=== PATIENT | female | born 1990 | race African-American/Black ===

== ENCOUNTER 2021-02-19 16:45 | Emergency (ER) | payer SELFPAY ==
[2021-02-19] MEDS ORDERED: Albuterol/Ipratropium 3.0-0.5 MG/3 ML Neb Soln NEB ONE (17:58)
--- NOTE | 2021-02-19 18:07 | EDM.PDOC ---
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 Tsai is a very pleasant 30-year-old woman who now presents the ED stating that she has a history of presumptive diagnosis since childhood, ordinarily on albuterol by MDI, and fluticasone/salmeterol. She states that she uses both of these medications on a variable basis depending on how she feels; sometimes up to 4 times a day for each, sometimes none. She states that she ran out of the fluticasone/salmeterol 2 days ago, then developed dyspnea with wheezing and a nonproductive cough yesterday. No recent fever. She states that she last took some albuterol this morning. The patient's explained that their family are refugees from [place], initially living in [place], but moving to this area 4 days ago. They have not yet established a PCP. The patient is also , , with her LMP some time in December. She does not have an LPN HOME HEALTH. Here in the ED, the patient's initial BP is found to be modestly elevated at 155/85, otherwise, she is hemodynamically stable, afebrile, saturating 96% on room air. Her BP decreased to 134/84 without treatment. Prior to yesterday, the patient denies having a recent fever, chills, sore throat, ear pain, nasal or sinus congestion, cough, dyspnea, chest pain, palpitations, nausea, vomiting, constipation, diarrhea, abdominal pain, urinary symptoms, recent weight gain or weight loss, recent bloody bowel movements or black bowel movements, recent joint aches, headaches, or rashes. The patient does not have a PCP or LPN HOME HEALTH. Headache Pain Score (Numeric/FACES): 4 - Related Data Home Meds: Home Meds Fluticasone Propion/Salmeterol [Fluticasone-Salmeterol 250-50] 1 inhalation IH BID #1 blst.w.dev 02/19/21 [Rx] Past Medical History Respiratory History: Reports: Asthma (suspected, not PFT-tested) : 3 Para: 2 - Past Surgical History Female Surgical History: Reports: Section (x 1) Social & Family History - Tobacco Use Tobacco Use Status *Q: Never Tobacco User - Alcohol Use Alcohol Use History: No - Recreational Drug Use Recreational Drug Use: No - Living Situation & Occupation Living situation: Reports: , with Spouse, with Family (2 kids) Occupation: Unemployed ED ROS GENERAL - Review of Systems Review Of Systems: Comprehensive ROS is negative, except as noted in HPI. ED EXAM, GENERAL - Physical Exam Exam: See Below Exam Limited By: No Limitations General Appearance: Alert, WD/WN, No Apparent Distress Eye Exam: Bilateral Eye: EOMI, Normal Inspection Ears: Normal External Exam, Hearing Grossly Normal Nose: Normal Inspection Throat/Mouth: Normal Inspection, Normal Lips, Normal Voice, No Airway Compromise Head: Atraumatic, Normocephalic Neck: Normal Inspection, Full Range of Motion Respiratory/Chest: No Respiratory Distress, No Accessory Muscle Use, Decreased Breath Sounds (slight), Wheezing (throughout), Prolonged Expiration (slight). No: Crackles, Rhonchi, Stridor Cardiovascular: Normal Peripheral Pulses, Regular Rate, Rhythm, No Edema, No Gallop, No JVD, No Murmur, No Rub Peripheral Pulses: 3+: Radial (L), Radial (R) GI/Abdominal: Normal Bowel Sounds, Soft, Non-Tender, No Organomegaly, No Distention, No Abnormal Bruit, Other (Gravid uterus) Back Exam: Normal Inspection, Full Range of Motion, NT Extremities: Normal Inspection, Normal Range of Motion, No Pedal Edema, Normal Capillary Refill Neurological: Alert, Oriented, Normal Cognition, No Motor/Sensory Deficits Psychiatric: Normal Affect Skin Exam: Warm, Dry, Intact, Normal Color, No Rash Course - Vital Signs Last Recorded V/S: Last Vital Signs Temp 36.6 C 02/19/21 17:27 Pulse 88 02/19/21 19:27 Resp 16 02/19/21 19:27 BP 116/72 02/19/21 19:27 Pulse Ox 93 L 02/19/21 19:27 - Orders/Labs/Meds Orders: Active Orders 24 hr Category Date Time Status RT Aerosol Therapy [RC] ASDIRECTED Care 02/19/21 17:58 Active Meds: Medications Discontinued Medications Generic Name Dose Route Start Last Admin Trade Name Klarissa PRN Reason Stop Dose Admin Albuterol/Ipratropium 3 ml 02/19/21 17:58 02/19/21 18:05 Albuterol/Ipratropium 3.0-0.5 Mg/3 Ml Neb Soln NEB 02/19/21 17:59 3 ml ONETIME ONE Administration - Re-Assessments/Exams Free Text/Narrative Re-Assessment/Exam: 02/19/21 17:59 As above, the patient has a presumptive history of asthma, ordinarily on albuterol MDI and fluticasone/salmeterol, both on a variable basis depending on how she feels, sometimes up to 4 times a day, sometimes none. She does not own a peak flow meter or spacer chamber. She now presents the ED requesting a refill of her fluticasone/salmeterol, having run out 2 days ago, then developing dyspnea, wheezing, and a cough yesterday. On examination, the patient does have expiratory wheezing throughout, although she has overall good air movement, with a minimally increased expiratory phase, and she does not appear to be in respiratory distress. The patient also reports that she is approximately 10 weeks gestation, with her LMP some time in December. By examination, I suspect that she is further along than that. I have ordered a DuoNeb, along with a peak flow meter and spacer chamber to be given to the patient. The respiratory therapist will begin educating about the proper use of albuterol and fluticasone/salmeterol. 02/19/21 18:45 I reevaluated the patient. She states that she feels much better, and her lungs are much clearer to auscultation. She has been provided both a peak flow meter and a spacer chamber, with instruction for proper use per the respiratory therapist. I will discharge her home with a prescription for fluticasone/salmeterol 250/50, 1 inhalation BID, #1 unit, no refills, however, the patient does not know which pharmacy to send the prescription to; her left the ED to take their children home and will return shortly. I will refer her to the clinic, to establish with a PCP and an LPN HOME HEALTH. 02/19/21 19:34 A prescription for fluticasone/salmeterol has been sent to the [facility]. Departure - Departure Time of Disposition: 19:32 Disposition: Home, Self-Care 01 Condition: Good Clinical Impression: Asthma exacerbation, Medication refill, - Discharge Information *PRESCRIPTION DRUG MONITORING PROGRAM REVIEWED*: Not Applicable *COPY OF PRESCRIPTION DRUG MONITORING REPORT IN PATIENT KVNG: Not Applicable Prescriptions: Fluticasone Propion/Salmeterol [Fluticasone-Salmeterol 250-50] 1 inhalation IH BID #1 blst.w.dev Referrals: PCP,None [Primary Care Provider] - Joslyn Powell NP [Nurse Practitioner] - Jacob Horvath MD [Physician] - Forms: ED Department Discharge Additional Instructions: You were seen in the emergency room for an exacerbation of asthma, as well as for a refill of your fluticasone/salmeterol. You were treated with a DuoNeb in the ER, with improvement of your symptoms. You were provided both a peak flow meter and a spacer chamber, along with instruction on how to use them, by the respiratory therapist during your ER visit. We recommend that you check your peak flow 2 or 3 times a week, that you learn how to use your peak flow meter and get to know your normal peak flow numbers. We recommend that you use your spacer chamber anytime you use a metered-dose inhaler. A prescription for a fluticasone/salmeterol blister pack has been sent to the [facility], located at [address] [place] [address]. Take 1 inhalation of fluticasone/albuterol twice a day, as prescribed. We recommend that you follow-up with Joslyn Powell NP, or one of the other providers in the clinic, to establish a PCP. We recommend that you follow-up with Dr. Jacob Horvath, to establish an LPN HOME HEALTH. If any other problems, please do not hesitate to return to the ER. Sepsis Event Note (ED) - Evaluation Sepsis Screening Result: No Definite Risk - Focused Exam Vital Signs: Vital Signs Temp Pulse Resp BP Pulse Ox Pulse Ox 02/19/21 19:27 88 16 116/72 93 L 02/19/21 17:58 93 L 02/19/21 17:27 36.6 C 93 18 155/85 H 96 - My Orders Last 24 Hours: My Active Orders 02/19/21 17:58 RT Aerosol Therapy [RC] ASDIRECTED - Assessment/Plan Last 24 Hours: My Active Orders 02/19/21 17:58 RT Aerosol Therapy [RC] ASDIRECTED
== END 2021-02-19 19:55 | disposition home or self-care (01) ==
LOC: JD.ED 16:45
DX: O99.511 Diseases of the respiratory system complicating pregnancy, first trimester (principal); J45.901 Unspecified asthma with (acute) exacerbation; Z76.0 Encounter for issue of repeat prescription; Z79.899 Other long term (current) drug therapy; Z3A.10 10 weeks gestation of pregnancy
CPT/HCPCS: 94640; 99283; 99283-25; J7620-GY

== ENCOUNTER 2021-05-11 10:46 | Emergency (ER) | payer MEDICAID ==
[2021-05-11] MEDS ORDERED: Albuterol/Ipratropium 3.0-0.5 MG/3 ML Neb Soln NEB ONE ×3 (11:12→16:13)
[2021-05-11] MEDS ORDERED: methylPREDNISolone Sodium Succinate 125 MG/2 ML SDV IVPUSH ONE (11:17)
--- NOTE | 2021-05-11 11:27 | EDM.PDOC ---
ED HPI GENERAL MEDICAL PROBLEM - General Chief Complaint: Asthma Stated Complaint: SOB Time Seen by Provider: 05/11/21 11:04 Source of Information: Reports: Patient, RN Notes Reviewed History Limitations: Reports: No Limitations - History of Present Illness INITIAL COMMENTS - FREE TEXT/NARRATIVE: Patient is a 30-year-old female presenting to the emergency department with complaints of asthma exacerbation. She reports that over the last 2 weeks, her asthma symptoms have been worsening significantly. She has been using her albuterol and Advair inhalers with little relief. She complains of chest tightness and wheezing. She is had no fever, chills, or cough. Denies any nausea vomiting or diarrhea. - Related Data Allergies Allergy/AdvReac Type Severity Reaction Status Date / Time No Known Allergies Allergy Verified 02/19/21 19:37 Home Meds: Home Meds Fluticasone Propion/Salmeterol [Fluticasone-Salmeterol 250-50] 1 inhalation IH BID #1 blst.w.dev 02/19/21 [Rx] Albuterol/Ipratropium [DuoNeb 3.0-0.5 MG/3 ML] 3 ml .XX Q4H PRN #25 ml 05/11/21 [Rx] predniSONE [Prednisone] 20 mg PO ASDIRECTED #15 tablet 05/11/21 [Rx] Past Medical History Respiratory History: Reports: Asthma - Past Surgical History Female Surgical History: Reports: Section Social & Family History - Caffeine Use Caffeine Use: Reports: None - Living Situation & Occupation Living situation: Reports: , with Spouse, with Family (2 kids) Occupation: Unemployed ED ROS GENERAL - Review of Systems Review Of Systems: See Below Constitutional: Reports: No Symptoms. Denies: Fever, Chills HEENT: Reports: No Symptoms Respiratory: Reports: Shortness of Breath, Wheezing, Pleuritic Chest Pain, Cough Cardiovascular: Reports: No Symptoms Endocrine: Reports: No Symptoms GI/Abdominal: Reports: No Symptoms : Reports: No Symptoms Musculoskeletal: Reports: No Symptoms Skin: Reports: No Symptoms Neurological: Reports: No Symptoms Psychiatric: Reports: No Symptoms Hematologic/Lymphatic: Reports: No Symptoms Immunologic: Reports: No Symptoms ED EXAM, GENERAL - Physical Exam Exam: See Below Exam Limited By: No Limitations General Appearance: Alert, Mild Distress Respiratory/Chest: No Respiratory Distress, No Accessory Muscle Use, Chest Non- Tender, Other (Diffuse, audible expiratory wheeze throughout. Decreased air exchange.) Cardiovascular: Normal Peripheral Pulses, Regular Rate, Rhythm, No Edema, No Gallop, No JVD, No Murmur, No Rub, Tachycardia (Female) Exam: Heart Tones (116) Neurological: Alert, Oriented, CN II-XII Intact, Normal Cognition, Normal Gait, Normal Reflexes, No Motor/Sensory Deficits Psychiatric: Normal Affect, Normal Mood Skin Exam: Warm, Dry, Intact, Normal Color, No Rash Course - Vital Signs Last Recorded V/S: Last Vital Signs Temp 97.9 F 05/11/21 11:02 Pulse 111 H 05/11/21 11:02 Resp 26 H 05/11/21 11:02 BP 147/92 H 05/11/21 11:02 Pulse Ox 92 L 05/11/21 13:47 - Orders/Labs/Meds Labs: Laboratory Tests 05/11/21 05/11/21 05/11/21 Range/Units 12:38 13:10 13:10 WBC 8.55 (3.98-10.04) K/mm3 RBC 4.77 (3.98-5.22) M/mm3 Hgb 12.8 (11.2-15.7) gm/dl Hct 41.1 (34.1-44.9) % MCV 86.2 (79.4-94.8) fl MCH 26.8 (25.6-32.2) pg MCHC 31.1 L (32.2-35.5) g/dl RDW Std Deviation 44.8 (36.4-46.3) fL Plt Count 266 (182-369) K/mm3 MPV 10.8 (9.4-12.3) fl Neut % (Auto) 64.9 (34.0-71.1) % Lymph % (Auto) 26.4 (19.3-51.7) % [place] % (Auto) 7.0 (4.7-12.5) % Eos % (Auto) 0.9 (0.7-5.8) Baso % (Auto) 0.2 (0.1-1.2) % Neut # (Auto) 5.54 (1.56-6.13) K/mm3 Lymph # (Auto) 2.26 (1.18-3.74) K/mm3 [place] # (Auto) 0.60 H (0.24-0.36) K/mm3 Eos # (Auto) 0.08 (0.04-0.36) K/mm3 Baso # (Auto) 0.02 (0.01-0.08) K/mm3 Sodium 135 L (136-145) mEq/L Potassium 4.2 (3.5-5.1) mEq/L Chloride 101 (98-107) mEq/L Carbon Dioxide 25 (21-32) mEq/L Anion Gap 13.2 (5-15) BUN 4 L (7-18) mg/dL Creatinine 0.5 L (0.55-1.02) mg/dL Est Cr Clr Drug Dosing TNP Estimated GFR (MDRD) > 60 (>60) mL/min BUN/Creatinine Ratio 8.0 L (14-18) Glucose 167 H (70-99) mg/dL Calcium 8.8 (8.5-10.1) mg/dL Magnesium 1.6 L (1.8-2.4) mg/dL Total Bilirubin 0.3 (0.2-1.0) mg/dL AST 16 (15-37) U/L ALT 17 (14-59) U/L Alkaline Phosphatase 94 (46-116) U/L Total Protein 8.0 (6.4-8.2) g/dl Albumin 2.8 L (3.4-5.0) g/dl Globulin 5.2 gm/dL Albumin/Globulin Ratio 0.5 L (1-2) SARS-CoV-2 RNA (JAZMIN) Negative (NEGATIVE) Meds: Medications Discontinued Medications Generic Name Dose Route Start Last Admin Trade Name Freq PRN Reason Stop Dose Admin Albuterol 2.5 mg 05/11/21 12:37 05/11/21 12:50 Albuterol 0.083% 2.5 Mg/3 Ml Neb Soln NEB 05/11/21 12:38 2.5 mg ONETIME ONE Administration Albuterol 2.5 mg 05/11/21 13:46 05/11/21 13:57 Albuterol 0.083% 2.5 Mg/3 Ml Neb Soln NEB 05/11/21 13:47 2.5 mg ONETIME ONE Administration Albuterol/Ipratropium 3 ml 05/11/21 11:12 05/11/21 11:31 Albuterol/Ipratropium 3.0-0.5 Mg/3 Ml Neb Soln NEB 05/11/21 11:13 3 ml ONETIME ONE Administration Albuterol/Ipratropium 3 ml 05/11/21 11:43 05/11/21 12:07 Albuterol/Ipratropium 3.0-0.5 Mg/3 Ml Neb Soln NEB 05/11/21 11:44 3 ml ONETIME ONE Administration Albuterol/Ipratropium 9 ml 05/11/21 16:13 Albuterol/Ipratropium 3.0-0.5 Mg/3 Ml Neb Soln NEB 05/11/21 16:14 ONETIME ONE Magnesium Sulfate 2 gm/ Premix 50 mls @ 100 mls/hr 05/11/21 12:36 05/11/21 13:15 IV 05/11/21 13:05 100 mls/hr ONETIME ONE Administration Methylprednisolone Sodium Succinate 125 mg 05/11/21 11:17 05/11/21 12:17 Methylprednisolone Sodium Succinate 125 Mg/2 Ml Sdv IVPUSH 05/11/21 11:18 125 mg ONETIME ONE Administration - Re-Assessments/Exams Free Text/Narrative Re-Assessment/Exam: Patient is a 30-year-old female presenting to the emergency department with complaints of 2-week history of worsening asthma symptoms. She is on albuterol and Advair and reports that this is providing no relief for her. Patient is 22 weeks . Denies any other symptoms such as fever or chills. On arrival to ER, oxygen saturations were 90% on room air. Triage nurse did place her on O2 by nasal cannula in her mouth and she is currently saturating 94%. She has audible wheezing. On exam, lung sounds are very tight and wheezy. I have ordered DuoNeb breathing treatment and Solu-Medrol 125 mg IV. 05/11/21 1145 Patient had slight improvement with the DuoNeb breathing treatment but continues to be wheezy. Of ordered a second DuoNeb to be given. 05/11/21 1240 Patient continues to have wheezing. I have ordered albuterol breathing treatment and magnesium sulfate 2 g IV. 05/11/21 13:45 Lung sounds have significantly improved, however there is still a faint expiratory wheeze. I will repeat albuterol breathing treatment. Nursing staff checked heart tones and they were found to be 116. Consulted with [facility], Dr. Hester. She stated that this is normal and did not recommend any intervention. 05/11/21 16:13 Patient is feeling much better. Lungs are clear with no audible wheezing. She has good air exchange. Oxygen saturations have been 90 to 93% on room air. She does not have a nebulizer machine at home. We will send her home with a nebulizer machine. I will also send 3 DuoNeb breathing treatments with her and send prescription for these. She will be started on prednisone tapering tomorrow. Reports she has an appointment to establish care with a primary care provider on May 16. Recommend that she keep this. Discussed return precautions. Discharge instructions as documented. Departure - Departure Time of Disposition: 16:15 Disposition: Home, Self-Care 01 Condition: Good Clinical Impression: Asthma exacerbation Qualifiers: Asthma severity: moderate Asthma persistence: persistent Qualified Code(s): J45.41 - Moderate persistent asthma with (acute) exacerbation - Discharge Information *PRESCRIPTION DRUG MONITORING PROGRAM REVIEWED*: No *COPY OF PRESCRIPTION DRUG MONITORING REPORT IN PATIENT KVNG: No Prescriptions: Albuterol/Ipratropium [DuoNeb 3.0-0.5 MG/3 ML] 3 ml .XX Q4H PRN #25 ml PRN Reason: Shortness Of Breath predniSONE [Prednisone] 20 mg PO ASDIRECTED #15 tablet Instructions: Asthma, Adult, [id number] Referrals: PCP,None [Primary Care Provider] - Forms: ED Department Discharge Additional Instructions: You were seen in the emergency department today for asthma exacerbation. Work- up included blood work, chest x-ray, and Covid test. Results of your work-up were found to be normal. While in the ER, you received IV steroids, nebulizer treatments, and magnesium through your IV. This did significantly improve your symptoms. You have been sent home with a nebulizer machine and 3 DuoNeb breathing treatments. You may use these every 4 hours as needed for shortness of breath or wheezing. Prescription has also been sent to your pharmacy for this. You been started on prednisone as well. This is a steroid. Begin taking this as prescribed tomorrow. Continue to use your Advair and albuterol inhalers as prescribed. Keep your appointment as scheduled on Wednesday with primary care provider. Discuss your worsening asthma symptoms. If you should experience any new or worsening symptoms of concern, please do not hesitate to return to the emergency department for reevaluation.
[2021-05-11] MEDS ORDERED: Magnesium Sulfate/Water 2 GM in Premix Bag 1 BAG IV ONE (12:36)
[2021-05-11] MEDS ORDERED: Albuterol 0.083% 2.5 MG/3 ML Neb Soln NEB ONE ×2 (12:37→13:46)
--- NOTE | 2021-05-11 15:37 | CR ---
Chest: Portable view of the chest was obtained. Comparison: No prior chest imaging is available. Heart size and mediastinum are within normal limits for portable technique. Lungs are clear with no acute parenchymal change. No acute osseous abnormality is appreciated. Impression: 1. Nothing acute is seen on portable chest x-ray. Diagnostic code #1
== END 2021-05-11 16:03 | disposition home or self-care (01) ==
LOC: JD.ED 10:46
DX: J45.41 Moderate persistent asthma with (acute) exacerbation (principal); Z20.822 Contact with and (suspected) exposure to COVID-19
CPT/HCPCS: 36415; 71045; 80053; 83735; 85025; 87635; 94640; 96365; 96375; 99285; J2930; J3475; J7620-GY; U0002

== ENCOUNTER 2021-07-22 15:11 | Inpatient (IN) | payer SELFPAY ==
[2021-07-22] MEDS ORDERED: Bupivacaine/fentaNYL/NS 100 ML Bag EPIDUR PRN (16:23)
[2021-07-22] MEDS ORDERED: fentaNYL 100 MCG/2 ML SDV EPIDUR PRN (16:23)
[2021-07-22] MEDS ORDERED: ePHEDrine 50 MG/ML SDV IVPUSH PRN (16:23)
[2021-07-22] MEDS ORDERED: diphenhydrAMINE 50 MG/ML SDV IVPUSH PRN (16:23)
[2021-07-22] MEDS ORDERED: Lidocaine 1% 50 ML MDV INJECT ONE (17:36)
[2021-07-22] MEDS ORDERED: Nalbuphine 10 MG/1 ML Vial IVPUSH PRN (17:36)
[2021-07-22] MEDS ORDERED: Sodium Chloride 0.9% 10 ML Syringe FLUSH PRN (17:36)
[2021-07-22] MEDS ORDERED: Ondansetron 4 MG/2 ML SDV IVPUSH PRN (17:36)
[2021-07-22] MEDS ORDERED: Lactated Ringers 1,000 ML IV SCH (17:45)
[2021-07-22] MEDS ORDERED: Oxytocin/Lactated Ringers 10 UNIT/1,000 ML BAG IV SCH ×2 (17:45)
--- NOTE | 2021-07-22 19:25 | PCM.LDHP ---
L&D History of Present Illness - General Date of Service: 07/22/21 Admit Problem/Dx: Patient Status Order with Admit Dx/Problem 07/22/21 18:09 Patient Status [ADT] Routine Admission Diagnosis/Problem Admission Diagnosis/Problem Gestational hypertension 07/22/21 19:17 Cristal 30-year-old 4 para 2-0-1-2 female presently at 37-0/7 weeks gestational age with an ISABELA of 08/12/2021 who is evaluated in labor and delivery with complaints of significant swelling of bilateral lower extremities. On evaluation she is noted to have blood pressure initially of 150/80 and multiple blood pressures in the high normal to mildly elevated category. Source of Information: Patient, Other ( record) History Limitations: Reports: Language Barrier (History was obtained through an conference interpreter on line and with the help of a friend by telephone.) - History of Present Illness Introduction:: Cristal 30-year-old 4 para 2-0-1-2 female presently at 37-0/7 weeks gestational age with an ISABELA of 08/12/2021 who is evaluated in labor and delivery with complaints of significant swelling of bilateral lower extremities. On evaluation she is noted to have blood pressure initially of 150/80 and multiple blood pressures in the high normal to mildly elevated category. She is monitored with reassuring heart tones and no significant contractions Blood pressures trended in the high normal to mildly elevated range and decision was made to proceed with induction of labor for what appears to be gestational hypertension. Laboratory testing revealed essentially normal liver function studies. CBC was unremarkable. Urine analysis showed 3+ protein and a protein:creatinine ratio which was extremely high. Deep tendon reflexes were found to be 1+/4 bilaterally in upper and lower extremities. Edema in bilateral lower extremities was felt to be 2+ with skin very tight and very painful with palpation of her lower extremities. RAMP BOSS history: 4 para 2-0-1-2. She denies any STIs. Also denies any hypertension with previous pregnancies. Patient's had 2 previous deliveries: 1. Male born 09/23/2009 at 41-0/7 weeks [place] 4.4 ouncesspontaneous vaginal delivery. 2. Male born 09/11/2017 at 38-0/7 weeks gestational ageprimary sectiondone in the [facility] in [facility]. Reason for the delivery by section is somewhat unclear. She has been told that she could have a vaginal delivery the next time around. course: Patient was initially seen for this on 04/04/2021 at 21-3/7 weeks gestational age. She was seen approximately 5 times during the . Her weight gain was from 183 to 192 pounds prior to today's visit. Fundal height growth appeared to be appropriate. On last evaluation on 06/20/2021 her blood pressure is 136/62. That was the last documented visit. Plan with her primary care director of corporate sales Dr. Owens was to proceed with a trial of labor after section for an attempt at vaginal after section. The risks, benefits, alternatives of care to a natural delivery including repeat section are discussed by myself in detail with the patient via an conference interpreter. She appears to understand and persist in her desire to proceed with a trial of labor after section for . Laboratory testing in shows blood to be a positive with a negative antibody screen. First labs showed a hemoglobin of 13.9 g/dL and platelets at 241,000. She is rubella positive/immune. Syphilis titer was negative for IgM and IgG. Hepatitis B surface antigen was negative. Hepatitis C evaluation was nonreactive. Chlamydia and gonorrhea were not detected. 1 hour glucose was 178 mg/dL. 3-hour glucose was 189. Patient was told that she did not have gestational diabetes. Do not see any sickle cell evaluation in the chart. Allergies: 1. Prednisone 2. Some type of medication that she received at the time of her which cause itching-question whether this was morphine or Duramorph.Patient unsure. Medications: 1. Albuterol inhaler as needed 2. Mometasone inhaler 2 puffs orally 1 time per day. 3. Albuterol ipratropium inhalation solution every 6 hours 4. vitamins Past medical history: 1. Miscarriage x1 2. Term delivered vaginallyfirst 3. Asthma on medications Past surgical history: 1. x1 Family history is reported as unremarkable. Social history: Patient is . She denies any drug, tobacco or alcohol use. She does not work outside the home. Review of systems: In general patient has the main complaint of severe bilateral lower extremity edema. Baby has been active. She is not had any contractions, loss of vaginal fluid or vaginal bleeding. She also reports she has not been seen by a physician for approximately 5 to 6 weeks. Skin: Negative Lungs: No infectious symptoms or shortness of breath Cardiovascular: No chest pain or exercise intolerance Breasts: No lumps, changes in size, pain, dimpling, discharge or axillary or supraclavicular concerns. GI: Negative : Baby is active, no contractions noted. No loss of vaginal fluid or vaginal bleeding noted. Musculoskeletal: Negative Neurological: Negative In general the patient is well-developed, well-nourished, pleasant female of stated age in no acute distress. There is a significant language barrier. History and interaction is obtained through the use of an online conference interpreter and then a friend who is communicated with by phone when the online conference interpreter connection failed. Skin is on the medial aspect of her right arm ventrally has scarring present no active lesions. Her bilateral lower extremities show significant edema in the 2+ range bilaterally. Her extremities are very tender and sensitive to even mild palpation. HEENT, neck and back within normal limits. Lungs are clear with good breath sounds in all lung holliday. Fair respiratory effort is made. Cardiovascular exam shows regular and rhythm without murmurs. Abdomen is gravid with fundal height of approximately 42 cm. Baby is in vertex presentation by Eduard evaluation and confirmed with bedside ultrasound.. Genital per digital exam shows cervix to be 3+ centimeters, 90% effaced, -2, mid position to anterior, soft, cephalic presentation confirmed.. Extremities show severe 2+ bilateral lower extremity edema and discomfort with palpation of her edematous bilateral lower extremities. Laboratory testing upon admission shows A CBC with a white blood count of 6.82. Globin is 11.3 with hematocrit 36.6 and platelets 197,000. Comprehensive metabolic profile shows a CO2 of 23, a sodium 139 and a potassium of 4.4. Her chloride is 107. ALT is 13, AST is 21. Creatinine 0.5. Urinalysis shows 3+ protein. Protein creatinine ratio is 5936.7. Covid evaluation is negative. The group B strep screen is obtained and pending. Urine drug screen was also performed and pending. - Related Data Allergies/Adverse Reactions: Allergies Allergy/AdvReac Type Severity Reaction Status Date / Time No Known Allergies Allergy Verified 02/19/21 19:37 Home Medications: Home Meds Fluticasone Propion/Salmeterol [Fluticasone-Salmeterol 250-50] 1 inhalation IH BID #1 blst.w.dev 02/19/21 [Rx] Albuterol/Ipratropium [DuoNeb 3.0-0.5 MG/3 ML] 3 ml .XX Q4H PRN #25 ml 05/11/21 [Rx] predniSONE [Prednisone] 20 mg PO ASDIRECTED #15 tablet 05/11/21 [Rx] Past Medical History - Past Health History Medical/Surgical History: Denies Medical/Surgical History Respiratory History: Reports: Asthma RAMP BOSS History: Reports: Other OB/BYN History: - Past Surgical History Female Surgical History: Reports: Section Social & Family History - Family History Family Medical History: No Pertinent Family History - Caffeine Use Caffeine Use: Reports: None - Living Situation & Occupation Living situation: Reports: , with Spouse, with Family (2 kids) Occupation: Unemployed H&P Review of Systems - Review of Systems: Review Of Systems: See Below L&D Exam - Exam Exam: See Below - Vital Signs Weight: 96.162 kg - Patient Data Lab Results Last 24 hrs: Laboratory Results - last 24 hr 07/22/21 07/22/21 07/22/21 Range/Units 15:45 15:45 16:10 WBC 6.82 (3.98-10.04) K/mm3 RBC 4.58 (3.98-5.22) M/mm3 Hgb 11.3 D (11.2-15.7) gm/dl Hct 36.6 (34.1-44.9) % MCV 79.9 D (79.4-94.8) fl MCH 24.7 L (25.6-32.2) pg MCHC 30.9 L (32.2-35.5) g/dl RDW Std Deviation 47.8 H (36.4-46.3) fL Plt Count 197 (182-369) K/mm3 MPV 12.9 H (9.4-12.3) fl Neut % (Auto) 53.5 (34.0-71.1) % Lymph % (Auto) 34.9 (19.3-51.7) % [place] % (Auto) 9.5 (4.7-12.5) % Eos % (Auto) 1.5 (0.7-5.8) Baso % (Auto) 0.3 (0.1-1.2) % Neut # (Auto) 3.65 (1.56-6.13) K/mm3 Lymph # (Auto) 2.38 (1.18-3.74) K/mm3 [place] # (Auto) 0.65 H (0.24-0.36) K/mm3 Eos # (Auto) 0.10 (0.04-0.36) K/mm3 Baso # (Auto) 0.02 (0.01-0.08) K/mm3 Manual Slide Review Abnormal smear PT (9.7-12.0) SECONDS INR APTT (21.7-31.4) SECONDS Fibrinogen (187-446) mg/dL Fibrin Degrad Products (<5) ug/mL Sodium (136-145) mEq/L Potassium (3.5-5.1) mEq/L Chloride (98-107) mEq/L Carbon Dioxide (21-32) mEq/L Anion Gap (5-15) BUN (7-18) mg/dL Creatinine (0.55-1.02) mg/dL Est Cr Clr Drug Dosing Estimated GFR (MDRD) (>60) mL/min BUN/Creatinine Ratio (14-18) Glucose (70-99) mg/dL Calcium (8.5-10.1) mg/dL Total Bilirubin (0.2-1.0) mg/dL AST (15-37) U/L ALT (14-59) U/L Alkaline Phosphatase (46-116) U/L Total Protein (6.4-8.2) g/dl Albumin (3.4-5.0) g/dl Globulin gm/dL Albumin/Globulin Ratio (1-2) Urine Color Yellow (Yellow) Urine Appearance Clear (Clear) Urine pH 7.0 (5.0-8.0) Ur Specific [place] 1.020 (1.005-1.030) Urine Protein 3+ H (Negative) Urine Glucose (UA) Negative (Negative) Urine Ketones Negative (Negative) Urine Occult Blood Trace-lysed H (Negative) Urine Nitrite Negative (Negative) Urine Bilirubin Negative (Negative) Urine Urobilinogen 0.2 (0.2-1.0) Ur Leukocyte Esterase Negative (Negative) Urine RBC 0-5 (0-5) /hpf Urine WBC 0-5 (0-5) /hpf Ur Squamous Epith Cells 5-10 H (0-5) /hpf Urine Bacteria Few (FEW) /hpf Urine Mucus Few (FEW) /hpf Ur Random Creatinine 67.9 (30.0-125.0) mg/dL U Random Total Protein 403.1 H (0.0-11.8) mg/dL Protein/Creatinin Ratio 5936.7 H (0-149) mg/g SARS-CoV-2 RNA (JAZMIN) (NEGATIVE) 07/22/21 07/22/21 07/22/21 Range/Units 16:10 16:10 16:10 WBC (3.98-10.04) K/mm3 RBC (3.98-5.22) M/mm3 Hgb (11.2-15.7) gm/dl Hct (34.1-44.9) % MCV (79.4-94.8) fl MCH (25.6-32.2) pg MCHC (32.2-35.5) g/dl RDW Std Deviation (36.4-46.3) fL Plt Count (182-369) K/mm3 MPV (9.4-12.3) fl Neut % (Auto) (34.0-71.1) % Lymph % (Auto) (19.3-51.7) % [place] % (Auto) (4.7-12.5) % Eos % (Auto) (0.7-5.8) Baso % (Auto) (0.1-1.2) % Neut # (Auto) (1.56-6.13) K/mm3 Lymph # (Auto) (1.18-3.74) K/mm3 [place] # (Auto) (0.24-0.36) K/mm3 Eos # (Auto) (0.04-0.36) K/mm3 Baso # (Auto) (0.01-0.08) K/mm3 Manual Slide Review PT 9.1 L (9.7-12.0) SECONDS INR < 0.93 APTT 23.3 (21.7-31.4) SECONDS Fibrinogen 389 (187-446) mg/dL Fibrin Degrad Products < 5 ug/ml (<5) ug/mL Sodium 139 (136-145) mEq/L Potassium 4.4 (3.5-5.1) mEq/L Chloride 107 (98-107) mEq/L Carbon Dioxide 23 (21-32) mEq/L Anion Gap 13.4 (5-15) BUN 6 L (7-18) mg/dL Creatinine 0.5 L (0.55-1.02) mg/dL Est Cr Clr Drug Dosing TNP Estimated GFR (MDRD) > 60 (>60) mL/min BUN/Creatinine Ratio 12.0 L (14-18) Glucose 94 (70-99) mg/dL Calcium 8.6 (8.5-10.1) mg/dL Total Bilirubin 0.2 (0.2-1.0) mg/dL AST 21 (15-37) U/L ALT 13 L (14-59) U/L Alkaline Phosphatase 184 H (46-116) U/L Total Protein 6.0 L (6.4-8.2) g/dl Albumin 1.9 L (3.4-5.0) g/dl Globulin 4.1 gm/dL Albumin/Globulin Ratio 0.5 L (1-2) Urine Color (Yellow) Urine Appearance (Clear) Urine pH (5.0-8.0) Ur Specific [place] (1.005-1.030) Urine Protein (Negative) Urine Glucose (UA) (Negative) Urine Ketones (Negative) Urine Occult Blood (Negative) Urine Nitrite (Negative) Urine Bilirubin (Negative) Urine Urobilinogen (0.2-1.0) Ur Leukocyte Esterase (Negative) Urine RBC (0-5) /hpf Urine WBC (0-5) /hpf Ur Squamous Epith Cells (0-5) /hpf Urine Bacteria (FEW) /hpf Urine Mucus (FEW) /hpf Ur Random Creatinine (30.0-125.0) mg/dL U Random Total Protein (0.0-11.8) mg/dL Protein/Creatinin Ratio (0-149) mg/g SARS-CoV-2 RNA (JAZMIN) (NEGATIVE) 07/22/21 Range/Units 16:15 WBC (3.98-10.04) K/mm3 RBC (3.98-5.22) M/mm3 Hgb (11.2-15.7) gm/dl Hct (34.1-44.9) % MCV (79.4-94.8) fl MCH (25.6-32.2) pg MCHC (32.2-35.5) g/dl RDW Std Deviation (36.4-46.3) fL Plt Count (182-369) K/mm3 MPV (9.4-12.3) fl Neut % (Auto) (34.0-71.1) % Lymph % (Auto) (19.3-51.7) % [place] % (Auto) (4.7-12.5) % Eos % (Auto) (0.7-5.8) Baso % (Auto) (0.1-1.2) % Neut # (Auto) (1.56-6.13) K/mm3 Lymph # (Auto) (1.18-3.74) K/mm3 [place] # (Auto) (0.24-0.36) K/mm3 Eos # (Auto) (0.04-0.36) K/mm3 Baso # (Auto) (0.01-0.08) K/mm3 Manual Slide Review PT (9.7-12.0) SECONDS INR APTT (21.7-31.4) SECONDS Fibrinogen (187-446) mg/dL Fibrin Degrad Products (<5) ug/mL Sodium (136-145) mEq/L Potassium (3.5-5.1) mEq/L Chloride (98-107) mEq/L Carbon Dioxide (21-32) mEq/L Anion Gap (5-15) BUN (7-18) mg/dL Creatinine (0.55-1.02) mg/dL Est Cr Clr Drug Dosing Estimated GFR (MDRD) (>60) mL/min BUN/Creatinine Ratio (14-18) Glucose (70-99) mg/dL Calcium (8.5-10.1) mg/dL Total Bilirubin (0.2-1.0) mg/dL AST (15-37) U/L ALT (14-59) U/L Alkaline Phosphatase (46-116) U/L Total Protein (6.4-8.2) g/dl Albumin (3.4-5.0) g/dl Globulin gm/dL Albumin/Globulin Ratio (1-2) Urine Color (Yellow) Urine Appearance (Clear) Urine pH (5.0-8.0) Ur Specific [place] (1.005-1.030) Urine Protein (Negative) Urine Glucose (UA) (Negative) Urine Ketones (Negative) Urine Occult Blood (Negative) Urine Nitrite (Negative) Urine Bilirubin (Negative) Urine Urobilinogen (0.2-1.0) Ur Leukocyte Esterase (Negative) Urine RBC (0-5) /hpf Urine WBC (0-5) /hpf Ur Squamous Epith Cells (0-5) /hpf Urine Bacteria (FEW) /hpf Urine Mucus (FEW) /hpf Ur Random Creatinine (30.0-125.0) mg/dL U Random Total Protein (0.0-11.8) mg/dL Protein/Creatinin Ratio (0-149) mg/g SARS-CoV-2 RNA (JAZMIN) Negative (NEGATIVE) Result Diagrams: 07/22/21 16:10 07/22/21 16:10 - Problem List (1) 37 weeks gestation of SNOMED Code(s): 37633358 ICD Code: Z3A.37 - 37 WEEKS GESTATION OF Status: Acute Current Visit: Yes (2) Gestational hypertension SNOMED Code(s): 22601214 ICD Code: O13.9 - GESTATIONAL HTN W/O SIGNIFICANT PROTEINURIA, UNSP TRIMESTER Status: Acute Current Visit: Yes (3) Bilateral lower extremity edema SNOMED Code(s): 444065934, 76339604, 338540698 ICD Code: R60.0 - LOCALIZED EDEMA Status: Acute Current Visit: Yes (4) Previous delivery affecting SNOMED Code(s): 691255948, 101735279 ICD Code: O34.219 - MATERNAL CARE FOR UNSP TYPE SCAR FROM PREVIOUS DEL Status: Acute Current Visit: Yes (5) Language barrier SNOMED Code(s): 379105247, 462687421 ICD Code: Z78.9 - OTHER SPECIFIED HEALTH STATUS Status: Acute Current Visit: Yes (6) Asthma SNOMED Code(s): 544641789 ICD Code: J45.909 - UNSPECIFIED ASTHMA, UNCOMPLICATED Status: Acute Current Visit: Yes Problem List Initiated/Reviewed/Updated: Yes Orders Last 24hrs: Active Orders 24 hr Category Date Time Status Patient Status [ADT] Routine ADT 07/22/21 18:09 Active Activity as Tolerated [RC] PFP Care 07/22/21 17:39 Active Communication Order [RC] ASDIRECTED Care 07/22/21 16:23 Active Communication Order [RC] ASDIRECTED Care 07/22/21 17:39 Active Cooling Warming Measures [RC] ASDIRECTED Care 07/22/21 16:23 Active Heart Tones [RC] ASDIRECTED Care 07/22/21 17:41 Active Non Stress Test [RC] PER UNIT ROUTINE Care 07/22/21 15:26 Active Notify Provider [RC] ASDIRECTED Care 07/22/21 16:23 Active Notify Provider [RC] ASDIRECTED Care 07/22/21 16:24 Active Notify Provider [RC] PFP Care 07/22/21 17:39 Active Notify Provider [RC] PRN Care 07/22/21 17:39 Active Oxygen Therapy [RC] ASDIRECTED Care 07/22/21 16:23 Active Peripheral IV Care [RC] . DIRECTED Care 07/22/21 17:41 Active Pulse Oximetry [RC] ASDIRECTED Care 07/22/21 16:23 Active Up ad Annabella [RC] ASDIRECTED Care 07/22/21 15:27 Active Urinary Catheter Assessment [RC] ASDIRECTED Care 07/22/21 17:36 Active Vital Signs [RC] PER UNIT ROUTINE Care 07/22/21 15:26 Active Regular Diet [DIET] Diet 07/22/21 Dinner Active GROUP B STREP BY PCR [MOLEC] Routine Lab 07/22/21 16:15 Received RAPID PLASMA REAGIN,RPR [CHEM] Routine Lab 07/22/21 16:10 Received Bupivacaine/fentaNYL/NS [fentaNYL/Bupivacaine/NS 2 MCG- Med 07/22/21 16:23 Active 0.125% 100 ML] 100 ml EPIDUR ASDIRECTED PRN Lactated Ringers [Ringers, Lactated] 1,000 ml Med 07/22/21 17:45 Active IV ASDIRECTED Nalbuphine [Nubain] Med 07/22/21 17:36 Active 10 mg IVPUSH Q2H PRN Ondansetron [Zofran] Med 07/22/21 17:36 Active 4 mg IVPUSH Q4H PRN Oxytocin/Lactated Ringers [Pitocin in LR 10 Units/1,000 Med 07/22/21 17:45 Active ML] 10 unit in 1,000 ml IV .CONTINUOUS Oxytocin/Lactated Ringers [Pitocin in LR 10 Units/1,000 Med 07/22/21 17:45 Active ML] 10 unit in 1,000 ml IV TITRATE Sodium Chloride 0.9% [Saline Flush] Med 07/22/21 17:36 Active 10 ml FLUSH ASDIRECTED PRN diphenhydrAMINE [Benadryl] Med 07/22/21 16:23 Active 25 mg IVPUSH Q6H PRN ePHEDrine [ePHEDrine sulfate] Med 07/22/21 16:23 Active 5 mg IVPUSH ASDIRECTED PRN fentaNYL [Sublimaze] Med 07/22/21 16:23 Active 100 mcg EPIDUR Q3H PRN Electronic Heart Tones Ext w TOCO [WOMSER] Oth 07/22/21 17:39 Ordered Routine Electronic Heart Tones Internal [WOMSER] Per Unit Oth 07/22/21 17:39 Ordered Routine Peripheral IV Insertion Adult [OM.PC] Routine Oth 07/22/21 17:39 Ordered Resuscitation Status Routine Resus Stat 07/22/21 15:26 Ordered Medication Orders Diphenhydramine HCl (Diphenhydramine 50 Mg/Ml Sdv) 25 mg IVPUSH Q6H PRN PRN Reason: pruritis Ephedrine Sulfate (Ephedrine 50 Mg/Ml Sdv) 5 mg IVPUSH ASDIRECTED PRN PRN Reason: Hypotension Fentanyl (Fentanyl 100 Mcg/2 Ml Sdv) 100 mcg EPIDUR Q3H PRN PRN Reason: Pain Fentanyl/Bupivacaine HCl (Bupivacaine/Fentanyl/Ns 100 Ml Bag) 100 ml EPIDUR ASDIRECTED PRN PRN Reason: Pain Lactated Ringer's (Ringers, Lactated) 1,000 mls @ 100 mls/hr IV ASDIRECTED VINCENT Last Admin: 07/22/21 18:40 Dose: 100 mls/hr Documented by: DVORMAR Oxytocin/Lactated Ringer's (Pitocin In Lr 10 Units/1,000 Ml) 10 unit in 1,000 mls @ 12 mls/hr IV TITRATE VINCENT; Protocol Last Admin: 07/22/21 18:40 Dose: 2 munits/min, 12 mls/hr Documented by: DVORMAR Oxytocin/Lactated Ringer's (Pitocin In Lr 10 Units/1,000 Ml) 10 unit in 1,000 mls @ 500 mls/hr IV .CONTINUOUS VINCENT Nalbuphine HCl (Nalbuphine 10 Mg/1 Ml Vial) 10 mg IVPUSH Q2H PRN PRN Reason: Pain Ondansetron HCl (Ondansetron 4 Mg/2 Ml Sdv) 4 mg IVPUSH Q4H PRN PRN Reason: Nausea/Vomiting Sodium Chloride (Sodium Chloride 0.9% 10 Ml Syringe) 10 ml FLUSH ASDIRECTED PRN PRN Reason: Keep Vein Open Assessment/Plan Comment:: 1. Cristal 30-year-old 4 para 2-0-1-2 female presently at 37-0/7 weeks gestational age with an ISABELA of 08/12/2021 who is evaluated in labor and delivery with complaints of significant swelling of bilateral lower extremities. On evaluation she is noted to have blood pressure initially of 150/80 and multiple blood pressures in the high normal to mildly elevated category (150/80, 154/81). 2. Reassuring heart tones 3. Risk factors for include bilateral lower extremity edema, elevated blood pressures, history of previous section, language barrier, asthma on medications. 4. Patient not interested in epidural at this time but knows that if it is available if she desires. 5. Uncertain as to whether her through glucose tolerance test was abnormal or not. Only one value is given with a 3-hour glucose of 189testing followed an abnormal 1 hour GTT with a level 178mg/dL. 6. Patient desires a trial of labor after section for vaginal after section. The attempt at , its risks, benefits, terms of care including a repeat section discussed in detail with patient. She seems to understand and as best as can be ascertained she continues to wish to attempt a via trial of labor after section. Consent for both attempt and for repeat section will be signed as patient has agreed to both of them. 6. Blood A positive. She is rubella immune. Uncertain 3-hour GTT results is not available in the patient's chart and she has no recollection of them. 7. Fundal height and clinical estimation of size consistent with a large baby. 8. Unknown group B strep status Plan: 1. Continue close monitoring of blood pressures. Antihypertensives as indicated by blood pressure elevation. 2. Labor analgesia per patient desire 3. Pitocin induction of labor to be followed by AROM when possible 4. We will closely monitor progression of labor. 5. Empiric group B strep prophylaxis with ampicillin per protocol. 6. Near continuous electronic heart tone monitoring 7. Anesthesia and surgery to be made aware of patient's presence in labor and delivery.
[2021-07-22] MEDS ORDERED: Sodium Chloride 0.9% 100 ML ONE (19:51)
[2021-07-22] MEDS ORDERED: Ampicillin 2 GM AdvVial IV ONE (19:51)
[2021-07-22] MEDS ORDERED: Ampicillin 2 GM in Sodium Chloride 0.9% 100 ML IV ONE (19:52)
[2021-07-22] MEDS ORDERED: Ampicillin 2 GM in Sodium Chloride 0.9% 100 ML IV SCH (20:00)
[2021-07-22] MEDS ORDERED: Albuterol/Ipratropium 3.0-0.5 MG/3 ML Neb Soln NEB ONE (20:53)
[2021-07-22] MEDS ORDERED: Labetalol 100 MG/20 ML MDV IVPUSH ONE (21:00)
[2021-07-22] MEDS ORDERED: Magnesium Sulfate/Water 4 GM in Premix Bag 1 BAG IV ONE (21:01)
[2021-07-22] MEDS ORDERED: Magnesium Sulfate/Water 2 GM in Premix Bag 1 BAG IV ONE (21:01)
[2021-07-22] MEDS ORDERED: Labetalol 100 MG/20 ML MDV ONE (21:02)
[2021-07-22] MEDS ORDERED: Calcium Gluconate 10% 1 GM/10 ML SDV IV PRN (21:04)
[2021-07-22] MEDS ORDERED: Magnesium Sulfate/Water 40 GM/1,000 ML BAG ONE (21:07)
[2021-07-22] MEDS ORDERED: Magnesium Sulfate/Water 50 ML ONE (21:07)
[2021-07-22] MEDS ORDERED: Magnesium Sulfate/Water 40 GM/1,000 ML BAG IV SCH (21:15)
[2021-07-22] MEDS ORDERED: Albuterol 6.7 GM Inhaler INH PRN (23:13)
--- NOTE | 2021-07-22 23:22 | PCM.SN.2 ---
- Free Text/Narrative Note: Delivery note: Stage I: Cristal 30-year-old 4 para 2-0-1-2 female presently at 37-0/7 weeks gestational age with an ISABELA of 08/12/2021 who is evaluated in labor and delivery with complaints of significant swelling of bilateral lower extremities. Upon admission patient was noted to have borderline elevated blood pressures that appeared very labile ranging from 136/63 to170/74. Generally they were in the low 150s systolic range and the 70s to 80s diastolic range. Decision was made to monitor this. Patient appeared to progress in a very active labor pattern after AROM resulted in clear amniotic fluid. The patient progressed very rapidly from 4 cm to complete within the course of less than 30 minutes and was very pushy with this. Pain was severe. heart tones remained reassuring throughout the course of labor. Patient did receive 1 dose of Nubain during the course of her labor. Stage II: Cristal delivered a viable, brown, female infant with Apgars of 8 and 9, weight of 3440 g (7 pounds 9 ounces), a length of 20.5 inches in a direct occiput anterior position. After the head was delivered a nuchal cord was noted. This was reduced over the baby's head. She had a small second-degree laceration which was repaired with Monocryl 3-0 in a routine fashion. No anesthesia was used for this and patient tolerated this reasonably well. After delivery Pitocin was increased to 500 cc/h to facilitate increase uterine tone and decrease likelihood of bleeding. He was placed on mom's abdomen. Because the baby has somewhat decreased tone the cord was clamped x2 cut and she was taken to the warmer for potential resuscitation which was determined not to be needed. The baby responded well and became vigorous over a short period of time. The cord blood was obtained. Umbilical cord had 3 vessels present. Stage III: Placenta delivered at 2249 hrs. in a Plasecnia presentation. It ap peared intact and complete and was discarded per patient desire. Estimated blood loss was approximately 300 cc. Condition: Good. Patient plans to both bottle and breast-feeding.
[2021-07-23] MEDS ORDERED: Ampicillin 1 GM in Sodium Chloride 0.9% 100 ML IV SCH ×2
[2021-07-23] MEDS: Magnesium Sulfate/Water 40 GM/1,000 ML BAG IV SCH ×2 (00:06→20:28)
[2021-07-23] MEDS: Labetalol 100 MG Tab PO SCH ×4 (00:16→21:29)
[2021-07-23] MEDS ORDERED: Benzocaine/Menthol 20%-0.5% Spray 78 GM Cannister TOP PRN (00:35)
[2021-07-23] MEDS ORDERED: Witch Hazel Medicated Pads 40/Jar TOP PRN (00:35)
[2021-07-23] MEDS: Ibuprofen 600 MG Tab PO PRN ×3 (04:38→20:26)
[2021-07-23] MEDS: Lactated Ringers 1,000 ML IV SCH ×2 (04:46→13:14)
[2021-07-23] MEDS: Mometasone Furoate HFA 200 mcg/Puff 13 GM Inhaler INH SCH (09:25)
[2021-07-23] MEDS: Albuterol 6.7 GM Inhaler INH SCH ×2 (09:25→20:13)
[2021-07-23] MEDS: Albuterol/Ipratropium 3.0-0.5 MG/3 ML Neb Soln NEB SCH ×4 (09:25→20:12)
[2021-07-23] MEDS: Acetaminophen 325 MG Tab PO PRN (09:28)
[2021-07-23] MEDS ORDERED: Sodium Chloride 0.9% 10 ML Syringe FLUSH ONE (11:23)
[2021-07-23] MEDS ORDERED: Iopamidol 755 Mg/ML 100 ML Bottle IVPUSH ONE (11:23)
[2021-07-23] MEDS ORDERED: Sodium Chloride 0.9% 100 ML IV SCH (11:30)
--- NOTE | 2021-07-23 12:30 | CT ---
CT chest Technique: Multiple axial sections through the chest were obtained. Intravenous contrast was utilized as a pulmonary angiogram protocol. Comparison: Prior chest x-ray of 05/11/21. Findings: Pulmonary arteries are well opacified. No filling defects are seen to indicate pulmonary embolism. Thoracic aorta shows no aneurysm. Mediastinum shows no adenopathy. Small lymph nodes are seen within both axillary regions which are likely incidental. Visualized upper abdominal structures show nothing acute. Heart size is mildly enlarged which is of uncertain etiology. No pericardial effusion is seen. Lung window settings were reviewed. No definite acute pulmonary change is seen. Bone window settings were reviewed which show no acute osseous finding. Impression: 1. Heart is mildly enlarged which is of uncertain etiology. 2. No findings of pulmonary embolism are seen. 3. Nothing acute is otherwise seen on CT study of the chest. Diagnostic code #3
[2021-07-24] MEDS: Ibuprofen 600 MG Tab PO PRN ×2 (02:03→20:49)
[2021-07-24] MEDS: Albuterol/Ipratropium 3.0-0.5 MG/3 ML Neb Soln NEB SCH ×4 (02:54→21:23)
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
[2021-07-24] MEDS: Albuterol 6.7 GM Inhaler INH SCH ×2 (09:31→21:24)
[2021-07-24] MEDS: Mometasone Furoate HFA 200 mcg/Puff 13 GM Inhaler INH SCH ×2 (09:31→15:29)
[2021-07-24] MEDS: Hydrochlorothiazide 12.5 MG Cap PO SCH (14:49)
[2021-07-25] MEDS: Albuterol/Ipratropium 3.0-0.5 MG/3 ML Neb Soln NEB SCH ×3 (03:38→15:25)
[2021-07-25] MEDS: Acetaminophen 325 MG Tab PO PRN ×2 (04:16→10:23)
[2021-07-25] MEDS: Mometasone Furoate HFA 200 mcg/Puff 13 GM Inhaler INH SCH (08:18)
[2021-07-25] MEDS: Albuterol 6.7 GM Inhaler INH SCH (08:18)
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
[2021-07-25] MEDS: Hydrochlorothiazide 12.5 MG Cap PO SCH (12:33)
[2021-07-25] MEDS ORDERED: Diphtheria,Pertussis(Acell),Tetanus Vaccine 0.5 ML Syringe IM ONE (16:45)
== END 2021-07-25 17:30 | disposition home or self-care (01) | DRG 807 ==
LOC: JD.OBCHECK 15:11 → JD.OB 15:12 → JD.OBCHECK 18:08 → JD.OB 18:09 → OBSVTOIN 22:45 → JD.OB 22:46
PROVIDERS: ADMIT Obstetrics & Gynecology; ATTEND Obstetrics & Gynecology
PROC: 10E0XZZ Delivery of Products of Conception, External Approach (ICD-10-PCS; principal; 2021-07-22)
PROC: 0KQM0ZZ Repair Perineum Muscle, Open Approach (ICD-10-PCS; 2021-07-22)
PROC: 10907ZC Drainage of Amniotic Fluid, Therapeutic from Products of Conception, Via Natural or Artificial Opening (ICD-10-PCS; 2021-07-22)
DX: O69.81X0 Labor and delivery complicated by cord around neck, without compression, not applicable or unspecified (principal); Z37.0 Single live birth; Z3A.37 37 weeks gestation of pregnancy; O70.1 Second degree perineal laceration during delivery; O14.94 Unspecified pre-eclampsia, complicating childbirth; Z20.822 Contact with and (suspected) exposure to COVID-19
CPT/HCPCS: 36415; 59025; 59409; 71275; 71275-26; 80053; 81001; 82570; 83735; 84156; 85025; 85362; 85384; 85610; 85730; 86592; 87653; 90471; 90715; 94640; 94761; A9270-GY; J0290; J2300; J2590; J3475; J3490; J7120; J7620-GY; Q9967; U0002

== ENCOUNTER 2021-07-26 10:59 | Observation (INO) | payer SELFPAY ==
[2021-07-26] MEDS ORDERED: Sodium Chloride 0.9% 10 ML Syringe FLUSH PRN (11:29)
[2021-07-26] MEDS ORDERED: Labetalol 100 MG/20 ML MDV IVPUSH ONE (11:30)
[2021-07-26] MEDS ORDERED: Magnesium Sulfate/Water 2 GM in Premix Bag 1 BAG IV ONE (11:31)
--- NOTE | 2021-07-26 12:14 | EDM.PDOC ---
ED HPI GENERAL MEDICAL PROBLEM - General Chief Complaint: Cardiovascular Problem Stated Complaint: EMS Time Seen by Provider: 07/26/21 11:08 Source of Information: Reports: Patient History Limitations: Reports: No Limitations - History of Present Illness INITIAL COMMENTS - FREE TEXT/NARRATIVE: The patient presents by [facility] for hypertension, leg swelling and pain. She delivered on the 7th here at the hospital. She had preeclampsia. They took the baby early because of this. She delivered at 37 weeks. She was given magnesium, labetolol and sent home on hydrochlorothiazide. She has no headache, fever, chills, cough, chest pain, and shortness of breath. She has some mild abdominal and some low back pain. She has no nausea or vomiting. 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: motrin Lower Back Pain Score (Numeric/FACES): 8 - Related Data Allergies Allergy/AdvReac Type Severity Reaction Status Date / Time prednisone Allergy Severe Swelling Verified 07/26/21 11:19 Home Meds: Home Meds Albuterol Sulfate [Proventil Hfa] 6.7 gm IH BID 07/22/21 [History] Albuterol/Ipratropium [DuoNeb 3.0-0.5 MG/3 ML] 1 dose INH Q6HR 07/22/21 [History] Mometasone Furoate [Asmanex] 220 mcg IH DAILY 07/22/21 [History] No122/Iron/Folic Acid [ Multi Tablet] 1 each PO DAILY 07/22/21 [History] Acetaminophen [Tylenol] 650 mg PO Q4H PRN tablet 07/25/21 [Rx] Albuterol/Ipratropium [DuoNeb 3.0-0.5 MG/3 ML] 3 ml NEB Q6HRRT neb 07/25/21 [Rx] hydroCHLOROthiazide [Hydrochlorothiazide] 12.5 mg PO DAILY cap 07/25/21 [Rx] Past Medical History - Past Health History Medical/Surgical History: Denies Medical/Surgical History Cardiovascular History: Reports: Other (See Below) Other Cardiovascular History: fluid retention Respiratory History: Reports: Asthma [employer]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 History: Reports: Other [employer]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 History: - Infectious Disease History Infectious Disease History: Reports: None - Past Surgical History Female Surgical History: Reports: Section Other Female Surgeries/Procedures: this is pt 3rd child; 2 born vaginal and the second one c-secion Social & Family History - Family History Family Medical History: No Pertinent Family History - Tobacco Use Tobacco Use Status *Q: Never Tobacco User - Caffeine Use Caffeine Use: Reports: Tea - Recreational Drug Use Recreational Drug Use: No - Living Situation & Occupation Living situation: Reports: , with Spouse, with Family (2 kids) Occupation: Unemployed ED ROS GENERAL - Review of Systems Review Of Systems: See Below Constitutional: Reports: No Symptoms HEENT: Reports: No Symptoms Respiratory: Reports: No Symptoms Cardiovascular: Reports: No Symptoms Endocrine: Reports: No Symptoms GI/Abdominal: Reports: Abdominal Pain. Denies: Nausea, Vomiting : Reports: No Symptoms Musculoskeletal: Reports: Back Pain, Other (leg pain and swelling) ED EXAM, GENERAL - Physical Exam Exam: See Below Exam Limited By: No Limitations General Appearance: Alert, No Apparent Distress Ears: Normal External Exam Nose: Normal Inspection Head: Atraumatic, Normocephalic Neck: Normal Inspection Respiratory/Chest: No Respiratory Distress, Lungs Clear, Normal Breath Sounds Cardiovascular: Regular Rate, Rhythm, No Edema, No Murmur GI/Abdominal: Soft, Non-Tender, No Organomegaly, No Mass Back Exam: Normal Inspection Extremities: Other (3+ edema to both legs. Good sensation and pulses distally.) Course - Vital Signs Last Recorded V/S: Last Vital Signs Temp 97.5 F 07/26/21 11:27 Pulse 94 07/26/21 11:27 Resp 20 07/26/21 11:27 BP 156/85 H 07/26/21 11:27 Pulse Ox 95 07/26/21 11:27 - Orders/Labs/Meds Orders: Active Orders 24 hr Category Date Time Status Peripheral IV Care [RC] . DIRECTED Care 07/26/21 11:30 Active RT Aerosol Therapy [RC] ASDIRECTED Care 07/26/21 15:27 Active CORONAVIRUS COVID-19 JAZMIN [MOLEC] Stat Lab 07/26/21 15:28 Ordered Sodium Chloride 0.9% [Saline Flush] Med 07/26/21 11:29 Active 10 ml FLUSH ASDIRECTED PRN Peripheral IV Insertion Adult [OM.PC] Stat Oth 07/26/21 11:29 Ordered Medication Orders Sodium Chloride (Sodium Chloride 0.9% 10 Ml Syringe) 10 ml FLUSH ASDIRECTED PRN PRN Reason: Keep Vein Open Last Admin: 07/26/21 11:43 Dose: 10 ml Documented by: FELICIANO Labs: Laboratory Tests 07/26/21 07/26/21 07/26/21 Range/Units 11:08 11:08 12:35 WBC 8.28 (3.98-10.04) K/mm3 RBC 4.27 (3.98-5.22) M/mm3 Hgb 10.6 L (11.2-15.7) gm/dl Hct 34.4 (34.1-44.9) % MCV 80.6 (79.4-94.8) fl MCH 24.8 L (25.6-32.2) pg MCHC 30.8 L (32.2-35.5) g/dl RDW Std Deviation 48.9 H (36.4-46.3) fL Plt Count 272 D (182-369) K/mm3 MPV 11.8 (9.4-12.3) fl Neut % (Auto) 69.3 (34.0-71.1) % Lymph % (Auto) 19.3 (19.3-51.7) % [place] % (Auto) 7.2 (4.7-12.5) % Eos % (Auto) 3.6 (0.7-5.8) Baso % (Auto) 0.2 (0.1-1.2) % Neut # (Auto) 5.73 (1.56-6.13) K/mm3 Lymph # (Auto) 1.60 (1.18-3.74) K/mm3 [place] # (Auto) 0.60 H (0.24-0.36) K/mm3 Eos # (Auto) 0.30 (0.04-0.36) K/mm3 Baso # (Auto) 0.02 (0.01-0.08) K/mm3 Sodium 142 (136-145) mEq/L Potassium 4.0 (3.5-5.1) mEq/L Chloride 105 (98-107) mEq/L Carbon Dioxide 29 (21-32) mEq/L Anion Gap 12.0 (5-15) BUN 7 (7-18) mg/dL Creatinine 0.7 (0.55-1.02) mg/dL Est Cr Clr Drug Dosing TNP Estimated GFR (MDRD) > 60 (>60) mL/min BUN/Creatinine Ratio 10.0 L (14-18) Glucose 103 H (70-99) mg/dL Calcium 8.5 (8.5-10.1) mg/dL Magnesium 1.7 L (1.8-2.4) mg/dL Total Bilirubin 0.3 (0.2-1.0) mg/dL AST 85 H (15-37) U/L ALT 79 H (14-59) U/L Alkaline Phosphatase 154 H (46-116) U/L Total Protein 6.2 L (6.4-8.2) g/dl Albumin 2.1 L (3.4-5.0) g/dl Globulin 4.1 gm/dL Albumin/Globulin Ratio 0.5 L (1-2) Urine Color Yellow (Yellow) Urine Appearance Clear (Clear) Urine pH 7.0 (5.0-8.0) Ur Specific [place] 1.025 (1.005-1.030) Urine Protein 3+ H (Negative) Urine Glucose (UA) Negative (Negative) Urine Ketones Negative (Negative) Urine Occult Blood 3+ H (Negative) Urine Nitrite Negative (Negative) Urine Bilirubin Negative (Negative) Urine Urobilinogen 1.0 (0.2-1.0) Ur Leukocyte Esterase 1+ H (Negative) Urine RBC 10-20 H (0-5) /hpf Urine WBC 5-10 H (0-5) /hpf Ur Squamous Epith Cells 0-5 (0-5) /hpf Urine Bacteria Few (FEW) /hpf Urine Mucus Few (FEW) /hpf Meds: Medications Generic Name Dose Route Start Last Admin Trade Name Freq PRN Reason Stop Dose Admin Sodium Chloride 10 ml 07/26/21 11:29 07/26/21 11:43 Sodium Chloride 0.9% 10 Ml Syringe FLUSH 10 ml ASDIRECTED PRN Administration Keep Vein Open Discontinued Medications Generic Name Dose Route Start Last Admin Trade Name Freq PRN Reason Stop Dose Admin Albuterol/Ipratropium 3 ml 07/26/21 15:27 Albuterol/Ipratropium 3.0-0.5 Mg/3 Ml Neb Soln NEB 07/26/21 15:28 ONETIME ONE Magnesium Sulfate 2 gm/ Premix 50 mls @ 25 mls/hr 07/26/21 11:31 07/26/21 11:42 IV 07/26/21 13:30 25 mls/hr ONETIME ONE Administration Labetalol HCl 20 mg 07/26/21 11:30 07/26/21 11:40 Labetalol 100 Mg/20 Ml Mdv IVPUSH 07/26/21 11:31 20 mg ONETIME ONE Administration Protocol - Re-Assessments/Exams Free Text/Narrative Re-Assessment/Exam: 07/26/21 12:16 I ordered an IV saline lock, labetolol 20mg IV, magnesium 2 grams IV, labs and a UA. 07/26/21 15:33 Her Hgb was 10.6. Her platelets are normal. Her magnesium was low at 1.7. Her glucose is elevated at 103. Her AST is elevated at 85. Her ALT is elevated at 79. Her alk phos is elevated at 154. She has 3 plus protein. Her lung sound are diminished. Her oxygen saturations are good at 95%. I have ordered a duoneb. I went into the room to check on the patient and a staff member [facility] said the patient had an episode of shaking last night for a few seconds. She took her inhaler and it helped. I am not sure if that was a seizure. It does not sound like it. I feel she needs to be admitted. I called Dr Foss and he agreed to the admission. 07/26/21 15:37 Her liver enzymes are elevated and her BP was elevated. She has preeclampsia. Her BP is better now at 135/65. Departure - Departure Time of Disposition: 15:45 Disposition: Admitted As Inpatient 68 Condition: Fair Clinical Impression: Elevated liver enzymes, Leg edema Preeclampsia Qualifiers: Trimester: third trimester Qualified Code(s): O14.93 - Unspecified pre- eclampsia, third trimester Referrals: Mechelle Cheung NP [Primary Care Provider] - Forms: ED Department Discharge Sepsis Event Note (ED) - Focused Exam Vital Signs: Vital Signs Temp Pulse Resp BP Pulse Ox 07/26/21 11:27 97.5 F 94 20 156/85 H 95 - My Orders Last 24 Hours: My Active Orders 07/26/21 11:29 Sodium Chloride 0.9% [Saline Flush] 10 ml FLUSH ASDIRECTED PRN Peripheral IV Insertion Adult [OM.PC] Stat 07/26/21 11:30 Peripheral IV Care [RC] . DIRECTED 07/26/21 15:27 RT Aerosol Therapy [RC] ASDIRECTED 07/26/21 15:28 CORONAVIRUS COVID-19 JAZMIN [MOLEC] Stat - Assessment/Plan Last 24 Hours: My Active Orders 07/26/21 11:29 Sodium Chloride 0.9% [Saline Flush] 10 ml FLUSH ASDIRECTED PRN Peripheral IV Insertion Adult [OM.PC] Stat 07/26/21 11:30 Peripheral IV Care [RC] . DIRECTED 07/26/21 15:27 RT Aerosol Therapy [RC] ASDIRECTED 07/26/21 15:28 CORONAVIRUS COVID-19 JAZMIN [MOLEC] Stat
[2021-07-26] MEDS ORDERED: Albuterol/Ipratropium 3.0-0.5 MG/3 ML Neb Soln NEB ONE (15:27)
[2021-07-26] MEDS ORDERED: Acetaminophen 325 MG Tab PO PRN (15:49)
[2021-07-26] MEDS: Albuterol 6.7 GM Inhaler INH PRN (18:16)
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
[2021-07-26] MEDS ORDERED: Calcium Gluconate 10% 1 GM/10 ML SDV IV PRN (22:09)
[2021-07-26] MEDS: Labetalol 100 MG Tab PO SCH (22:22)
[2021-07-27] MEDS: Albuterol 6.7 GM Inhaler INH PRN (03:46)
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
[2021-07-27] MEDS: Labetalol 100 MG Tab PO SCH (10:42)
== END 2021-07-27 11:09 | disposition home or self-care (01) ==
LOC: JD.ED 10:59 → JD.OB 16:21
PROVIDERS: ADMIT Obstetrics & Gynecology; ATTEND Obstetrics & Gynecology
DX: O16.5 Unspecified maternal hypertension, complicating the puerperium (principal); O14.93 Unspecified pre-eclampsia, third trimester; R53.83 Other fatigue; R60.0 Localized edema; Z79.899 Other long term (current) drug therapy; Z20.822 Contact with and (suspected) exposure to COVID-19
CPT/HCPCS: 36415; 80053; 81001; 83735; 85025; 87635; 94640; 94760; A9270; G0378; J3475; J3490; U0002

== ENCOUNTER 2021-07-27 18:04 | Emergency (ER) | payer SELFPAY ==
--- NOTE | 2021-07-27 19:50 | EDM.PDOC ---
ED HPI GENERAL MEDICAL PROBLEM - General Chief Complaint: Cardiovascular Problem Stated Complaint: [facility] Time Seen by Provider: 07/27/21 19:44 - History of Present Illness INITIAL COMMENTS - FREE TEXT/NARRATIVE: 30-year-old 5 days returns with elevated blood pressure. She is a 3 para 3 who was admitted here last evening with what looks like preeclampsia. She was discharged on labetalol twice daily and was to stop her hydrochlorothiazide. Patient states she is doing this however on looking through her medication I find hydrochlorothiazide and ibuprofen. Patient still has her ankles but she states her ankle edema is getting better. She denies any breathing difficulties shortness of breath chest discomfort. She denies any other complaints at this time. Lower Abdominal Pain Score (Numeric/FACES): 3 - Related Data Allergies Allergy/AdvReac Type Severity Reaction Status Date / Time prednisone Allergy Severe Swelling Verified 07/27/21 18:50 Home Meds: Home Meds Albuterol Sulfate [Proventil Hfa] 6.7 gm IH BID 07/22/21 [History] Albuterol/Ipratropium [DuoNeb 3.0-0.5 MG/3 ML] 1 dose INH Q6HR 07/22/21 [History] Mometasone Furoate [Asmanex] 220 mcg IH DAILY 07/22/21 [History] No122/Iron/Folic Acid [ Multi Tablet] 1 each PO DAILY 07/22/21 [History] Acetaminophen [Tylenol] 650 mg PO Q4H PRN tablet 07/25/21 [Rx] Albuterol/Ipratropium [DuoNeb 3.0-0.5 MG/3 ML] 3 ml NEB Q6HRRT neb 07/25/21 [Rx] hydroCHLOROthiazide [Hydrochlorothiazide] 12.5 mg PO DAILY cap 07/25/21 [Rx] Labetalol [Normodyne] 200 mg PO Q12H tablet 07/27/21 [Rx] Labetalol HCl [Labetalol] 200 mg PO BID #30 tablet 07/28/21 [Rx] Past Medical History - Past Health History Medical/Surgical History: Denies Medical/Surgical History Cardiovascular History: Reports: Other (See Below) Other Cardiovascular History: fluid retention Respiratory History: Reports: Asthma Other Respiratory History: 10 year hx Gastrointestinal History: Reports: Other (See Below) Other Gastrointestinal History: Ulcers dx and used to take medicine for this in [place], nothing [place]. Genitourinary History: Reports: None [employer] History: Reports: Other [employer]ER History: Musculoskeletal History: Reports: None Neurological History: Reports: None Other Psychiatric History: some depression and anxiety pt states, she says she prays. Never has she tried to harm herself or others, and she hasn't taken any medication/therapy for this . Endocrine/Metabolic History: Reports: None Hematologic History: Reports: None Immunologic History: Reports: None Oncologic (Cancer) History: Reports: None Dermatologic History: Reports: None - Infectious Disease History Infectious Disease History: Reports: None - Past Surgical History Head Surgeries/Procedures: Reports: None Respiratory Surgical History: Reports: None GI Surgical History: Reports: None Female Surgical History: Reports: Section Other Female Surgeries/Procedures: this is pt 3rd child; 2 born vaginal and the second one c-secion Endocrine Surgical History: Reports: None Neurological Surgical History: Reports: None Musculoskeletal Surgical History: Reports: None Oncologic Surgical History: Reports: None Dermatological Surgical History: Reports: None Social & Family History - Family History Family Medical History: No Pertinent Family History - Tobacco Use Tobacco Use Status *Q: Unknown Ever Used Tobacco - Caffeine Use Caffeine Use: Reports: Tea - Living Situation & Occupation Living situation: Reports: , with Spouse, with Family (2 kids) Occupation: Unemployed ED ROS GENERAL - Review of Systems Review Of Systems: See Below Constitutional: Reports: No Symptoms, Fever HEENT: Reports: No Symptoms Respiratory: Reports: No Symptoms Cardiovascular: Reports: Edema. Denies: No Symptoms Endocrine: Reports: No Symptoms GI/Abdominal: Reports: No Symptoms : Reports: No Symptoms Musculoskeletal: Reports: No Symptoms Skin: Reports: No Symptoms Neurological: Reports: No Symptoms Psychiatric: Reports: No Symptoms ED EXAM, GENERAL - Physical Exam Exam: See Below Exam Limited By: No Limitations General Appearance: Alert, No Apparent Distress Eye Exam: Right Eye: PERRL, Vision Changes, Bilateral Eye: Normal Inspection Ears: Normal External Exam, Normal Canal, Hearing Grossly Normal, Normal TMs Nose: Normal Inspection, Normal Mucosa, No Blood Throat/Mouth: Normal Inspection, Normal Lips, Normal Teeth, Normal Gums, Normal Oropharynx, Normal Voice, No Airway Compromise Head: Atraumatic, Normocephalic Neck: Normal Inspection, Supple, Non-Tender, Full Range of Motion. No: Lymphadenopathy (L), Lymphadenopathy (R) Respiratory/Chest: No Respiratory Distress, Lungs Clear, Normal Breath Sounds Cardiovascular: Regular Rate, Rhythm, No Edema, No Murmur GI/Abdominal: Normal Bowel Sounds, Soft, Tender (Minimal tenderness with pal pation no localizing findings no rigidity rebound or guarding) Back Exam: Normal Inspection. No: CVA Tenderness (L), CVA Tenderness (R) Extremities: Pedal Edema (Seems to be improving according to the patient) Neurological: Alert, Oriented, Normal Cognition, Abnormal Reflexes (Moderately hyperreflexic) Course - Vital Signs Last Recorded V/S: Last Vital Signs Temp 35.6 C L 07/27/21 18:40 Pulse 87 07/27/21 23:54 Resp 18 07/27/21 18:40 BP 143/82 H 07/28/21 01:09 Pulse Ox 94 L 07/27/21 18:40 - Orders/Labs/Meds Orders: Active Orders 24 hr Category Date Time Status CORONAVIRUS COVID-19 JAZMIN [MOLEC] Stat Lab 07/27/21 19:52 Ordered CULTURE URINE [MREF] Stat Lab 07/27/21 23:21 Received Labs: Laboratory Tests 07/27/21 07/27/21 07/27/21 Range/Units 20:10 20:10 23:21 WBC 8.37 (3.98-10.04) K/mm3 RBC 4.19 (3.98-5.22) M/mm3 Hgb 10.4 L (11.2-15.7) gm/dl Hct 34.5 (34.1-44.9) % MCV 82.3 (79.4-94.8) fl MCH 24.8 L (25.6-32.2) pg MCHC 30.1 L (32.2-35.5) g/dl RDW Std Deviation 50.9 H (36.4-46.3) fL Plt Count 281 (182-369) K/mm3 MPV 11.1 (9.4-12.3) fl Neut % (Auto) 63.1 (34.0-71.1) % Lymph % (Auto) 23.5 (19.3-51.7) % [place] % (Auto) 9.2 (4.7-12.5) % Eos % (Auto) 3.3 (0.7-5.8) Baso % (Auto) 0.4 (0.1-1.2) % Neut # (Auto) 5.28 (1.56-6.13) K/mm3 Lymph # (Auto) 1.97 (1.18-3.74) K/mm3 [place]ander # (Auto) 0.77 H (0.24-0.36) K/mm3 Eos # (Auto) 0.28 (0.04-0.36) K/mm3 Baso # (Auto) 0.03 (0.01-0.08) K/mm3 Sodium 144 (136-145) mEq/L Potassium 4.3 (3.5-5.1) mEq/L Chloride 110 H (98-107) mEq/L Carbon Dioxide 25 (21-32) mEq/L Anion Gap 13.3 (5-15) BUN 8 (7-18) mg/dL Creatinine 0.6 (0.55-1.02) mg/dL Est Cr Clr Drug Dosing TNP Estimated GFR (MDRD) > 60 (>60) mL/min BUN/Creatinine Ratio 13.3 L (14-18) Glucose 102 H (70-99) mg/dL Calcium 8.3 L (8.5-10.1) mg/dL Magnesium 2.0 (1.8-2.4) mg/dL Total Bilirubin 0.2 (0.2-1.0) mg/dL AST 38 H (15-37) U/L ALT 62 H (14-59) U/L Alkaline Phosphatase 132 H (46-116) U/L Total Protein 6.7 (6.4-8.2) g/dl Albumin 2.1 L (3.4-5.0) g/dl Globulin 4.6 gm/dL Albumin/Globulin Ratio 0.5 L (1-2) Urine Color [place] H (Yellow) Urine Appearance Cloudy H (Clear) Urine pH 7.0 (5.0-8.0) Ur Specific [place] 1.020 (1.005-1.030) Urine Protein 2+ H (Negative) Urine Glucose (UA) Negative (Negative) Urine Ketones Negative (Negative) Urine Occult Blood 3+ H (Negative) Urine Nitrite Negative (Negative) Urine Bilirubin Negative (Negative) Urine Urobilinogen 1.0 (0.2-1.0) Ur Leukocyte Esterase 1+ H (Negative) Urine RBC >100 H (0-5) /hpf Urine WBC 20-30 H (0-5) /hpf Urine WBC Clumps Few (NOT SEEN) /hpf Ur Squamous Epith Cells 0-5 (0-5) /hpf Urine Bacteria Few (FEW) /hpf Urine Mucus Not seen (FEW) /hpf Meds: Medications Discontinued Medications Generic Name Dose Route Start Last Admin Trade Name Klarissa PRN Reason Stop Dose Admin Magnesium Sulfate 2 gm/ Premix 50 mls @ 25 mls/hr 07/27/21 20:04 07/27/21 21:55 IV 07/27/21 22:03 25 mls/hr ONETIME ONE Administration Magnesium Sulfate 2 gm/ Premix 50 mls @ 25 mls/hr 07/27/21 20:15 07/27/21 23:26 IV Not Given Q1H VINCENT Labetalol HCl 200 mg 07/27/21 23:45 07/27/21 23:54 Labetalol 100 Mg Tab PO 07/27/21 23:46 200 mg ONETIME ONE Administration - Re-Assessments/Exams Free Text/Narrative Re-Assessment/Exam: 07/27/21 22:54 Patient's labs look good her blood pressures been reasonably well 149/77 is the most current at times has been even lower than this. The patient did get the prescription from Dr. Foss this morning for the lab labetalol 200 mg twice daily and this is at the senior care. She is advised to take this. She agrees to follow-up with her regular OB on Wednesday for recheck. We will discharge home at this time. However patient has not given us a urine but she really wants to get back to the senior care. Situation discussed with Dr. Foss. Departure - Departure Time of Disposition: 22:55 Disposition: Home, Self-Care 01 Clinical Impression: Gestational hypertension Preeclampsia Qualifiers: Trimester: third trimester Qualified Code(s): O14.93 - Unspecified pre- eclampsia, third trimester Prescriptions: Labetalol HCl [Labetalol] 200 mg PO BID #30 tablet Instructions: Preeclampsia and Eclampsia Referrals: Radha Owens MD [Primary Care Provider] - Forms: ED Department Discharge Additional Instructions: Return to the emergency room with any questions problems or worsening symptoms. Take your labetalol as directed. If you cannot find this prescription I have given you another 1. Follow-up with Dr. Lucero on Wednesday for recheck Sepsis Event Note (ED) - Evaluation Sepsis Screening Result: No Definite Risk - Focused Exam Vital Signs: Vital Signs Temp Pulse Pulse Resp BP BP Pulse Ox 07/28/21 01:09 143/82 H 07/27/21 23:54 87 154/76 H 07/27/21 22:00 154/70 H 07/27/21 18:40 35.6 C L 91 18 94 L - My Orders Last 24 Hours: My Active Orders 07/27/21 19:52 CORONAVIRUS COVID-19 JAZMIN [MOLEC] Stat 07/27/21 23:21 CULTURE URINE [MREF] Stat - Assessment/Plan Last 24 Hours: My Active Orders 07/27/21 19:52 CORONAVIRUS COVID-19 JAZMIN [MOLEC] Stat 07/27/21 23:21 CULTURE URINE [MREF] Stat
[2021-07-27] MEDS ORDERED: Magnesium Sulfate/Water 2 GM in Premix Bag 1 BAG IV ONE (20:04)
[2021-07-27] MEDS: Magnesium Sulfate/Water 2 GM in Premix Bag 1 BAG IV SCH ×4 (22:12→23:26)
[2021-07-27] MEDS ORDERED: Labetalol 100 MG Tab PO ONE (23:45)
== END 2021-07-28 10:23 | disposition home or self-care (01) ==
LOC: JD.ED 18:04
DX: O14.95 Unspecified pre-eclampsia, complicating the puerperium (principal); O13.5 Gestational [pregnancy-induced] hypertension without significant proteinuria, complicating the puerperium; O99.53 Diseases of the respiratory system complicating the puerperium; J45.909 Unspecified asthma, uncomplicated; Z88.8 Allergy status to other drugs, medicaments and biological substances; Z79.899 Other long term (current) drug therapy
CPT/HCPCS: 36415; 80053; 81001; 83735; 85025; 87086; 96365; 99283; A9270; J3475

== ENCOUNTER 2022-04-10 00:06 | Emergency (ER) | payer SELFPAY ==
[2022-04-10] MEDS ORDERED: Ondansetron 4 MG/2 ML SDV IVPUSH ONE (00:32)
[2022-04-10] MEDS ORDERED: Sodium Chloride 0.9% 10 ML Syringe FLUSH PRN (00:32)
[2022-04-10] MEDS ORDERED: Sodium Chloride 0.9% 1,000 ML IV STA (00:32)
[2022-04-10] MEDS ORDERED: HYDROmorphone 0.5 MG/0.5 ML Syringe IVPUSH ONE (00:33)
[2022-04-10] MEDS ORDERED: Dicyclomine 10 MG Cap PO ONE (00:54)
== END 2022-04-10 01:09 | disposition home or self-care (01) ==
LOC: JD.ED 00:06 → MERGE 00:06 → JD.ED 01:09
DX: R10.10 Upper abdominal pain, unspecified (principal); R11.2 Nausea with vomiting, unspecified; Z88.8 Allergy status to other drugs, medicaments and biological substances
CPT/HCPCS: 99284; A9270

== ENCOUNTER → 2022-04-10 | Emergency (ER) | payer MEDICAID, OTHER | LOC: CANPREER → JD.ED 00:45 | DX: Z53.21 Procedure and treatment not carried out due to patient leaving prior to being seen by health care provider (principal) ==

== ENCOUNTER 2022-04-20 22:13 | Day surgery (SDC) | payer MEDICAID ==
[2022-04-20] MEDS ORDERED: HYDROmorphone 1 MG/ML Syringe IVPUSH STA (23:32)
[2022-04-20] MEDS ORDERED: Ondansetron 4 MG/2 ML SDV IVPUSH ONE (23:32)
[2022-04-20] MEDS ORDERED: Sodium Chloride 0.9% 10 ML Syringe FLUSH PRN (23:34)
[2022-04-20] MEDS ORDERED: Sodium Chloride 0.9% 1,000 ML IV SCH (23:45)
[2022-04-21 01:59] LABS: ESTIMATED GFR 102 mL/min (>60)
[2022-04-21] MEDS ORDERED: Iopamidol 612 MG/ML 100 ML Bottle IVPUSH ONE ×2 (01:59→02:00)
[2022-04-21] MEDS ORDERED: Sodium Chloride 0.9% 10 ML Syringe FLUSH ONE (01:59)
[2022-04-21] MEDS ORDERED: HYDROmorphone 0.5 MG/0.5 ML Syringe IVPUSH ONE ×2 (05:01→08:58)
[2022-04-21] MEDS ORDERED: Lidocaine 1% with EPINEPHrine 1:100,000 20 ML MDV ONE (09:16)
[2022-04-21] MEDS ORDERED: Bupivacaine 0.25% 10 ML SDV ONE (09:16)
[2022-04-21] MEDS ORDERED: ceFAZolin 2 GM in Sodium Chloride 0.9% 50 ML IV ONE (09:44)
[2022-04-21] MEDS ORDERED: metroNIDAZOLE/Normal Saline 500 MG in Premix Bag 1 BAG IV ONE (09:45)
[2022-04-21] MEDS ORDERED: fentaNYL 250 MCG/5 ML SDV ONE (09:47)
[2022-04-21] MEDS ORDERED: Midazolam 1 MG/ML 2 ML SDV ONE (09:47)
[2022-04-21] MEDS ORDERED: Ondansetron 4 MG/2 ML SDV ONE (09:47)
[2022-04-21] MEDS ORDERED: Rocuronium 50 MG/5 ML Vial ONE (09:47)
[2022-04-21] MEDS ORDERED: Propofol 200 MG/20 ML SDV ONE (09:48)
[2022-04-21] MEDS ORDERED: Lidocaine 1% 5 ML VIAL ONE (09:48)
[2022-04-21] MEDS ORDERED: ceFAZolin 2 GM Vial ONE (09:51)
[2022-04-21] MEDS ORDERED: Albuterol 0.083% 2.5 MG/3 ML Neb Soln NEB ONE (10:00)
[2022-04-21] MEDS ORDERED: Lactated Ringers 1,000 ML IV SCH (10:00)
[2022-04-21] MEDS ORDERED: HYDROmorphone 0.5 MG/0.5 ML Syringe ONE (10:37)
[2022-04-21] MEDS ORDERED: Neostigmine Methylsulfate 10 MG/10 ML MDV ONE (10:38)
[2022-04-21] MEDS ORDERED: Ketorolac 30 MG/ML SDV ONE (10:50)
[2022-04-21] MEDS ORDERED: Lactated Ringers 1,000 ML ONE (11:04)
[2022-04-21] MEDS ORDERED: HYDROmorphone 0.5 MG/0.5 ML Syringe IVPUSH PRN (11:21)
[2022-04-21] MEDS ORDERED: fentaNYL 100 MCG/2 ML SDV IVPUSH PRN (11:21)
[2022-04-21] MEDS ORDERED: Ondansetron 4 MG/2 ML SDV IVPUSH PRN (11:21)
[2022-04-21] MEDS ORDERED: diphenhydrAMINE 50 MG/ML SDV IVPUSH PRN (11:28)
[2022-04-21] MEDS ORDERED: Acetaminophen 325 MG Tab PO PRN (11:28)
[2022-04-21] MEDS ORDERED: Polyethylene Glycol 3350 Powder 17 GM Packet PO PRN (11:28)
[2022-04-21] MEDS ORDERED: Morphine 2 MG/ML SYRINGE IVPUSH PRN (11:28)
[2022-04-21] MEDS ORDERED: oxyCODONE 5 MG Tab PO PRN (11:34)
[2022-04-21] MEDS ORDERED: Albuterol 0.083% 2.5 MG/3 ML Neb Soln NEB PRN (11:35)
[2022-04-21] MEDS ORDERED: Heparin Sodium 5,000 Units/ML Vial SUBCUT SCH (17:00)
[2022-04-21] MEDS ORDERED: Pantoprazole 40 MG Vial IVPUSH ONE (17:00)
[2022-04-21] MEDS ORDERED: Ketorolac 15 MG/ML SDV IVPUSH SCH (18:00)
[2022-04-22] MEDS ORDERED: Pantoprazole 40 MG Tab.CR PO SCH (06:00)
== END 2022-04-21 16:05 | disposition home or self-care (01) ==
LOC: JD.ED 22:13 → JD.SDS 04-21 09:09
PROVIDERS: ATTEND Surgery
DX: K80.10 Calculus of gallbladder with chronic cholecystitis without obstruction (principal); J45.20 Mild intermittent asthma, uncomplicated; K59.04 Chronic idiopathic constipation; K21.9 Gastro-esophageal reflux disease without esophagitis; Z79.899 Other long term (current) drug therapy
CPT/HCPCS: 36415; 47562; 74177; 76705; 80053; 81001; 81025; 83690; 85007; 85027; 94640; J1170; J1885; J2250; J2405; J2704; J2710; J3010; J3490; J7030; J7120; Q9967; 00790; J0690

== ENCOUNTER 2022-06-16 02:26 | Emergency (ER) | payer MEDICAID ==
[2022-06-16] MEDS ORDERED: HYDROmorphone 1 MG/ML Syringe IVPUSH STA (03:48)
[2022-06-16] MEDS ORDERED: Ondansetron 4 MG/2 ML SDV IVPUSH ONE (03:48)
[2022-06-16] MEDS ORDERED: Sodium Chloride 0.9% 1,000 ML IV SCH (04:00)
[2022-06-16] MEDS ORDERED: Iopamidol 612 MG/ML 100 ML Bottle IVPUSH ONE (04:20)
[2022-06-16] MEDS ORDERED: Tamsulosin 0.4 MG Cap.ER PO ONE (04:40)
== END 2022-06-16 05:54 | disposition home or self-care (01) ==
LOC: JD.ED 02:26
DX: N13.2 Hydronephrosis with renal and ureteral calculous obstruction (principal); I44.0 Atrioventricular block, first degree; E66.9 Obesity, unspecified; Z68.32 Body mass index [BMI] 32.0-32.9, adult; Z88.8 Allergy status to other drugs, medicaments and biological substances; Z79.899 Other long term (current) drug therapy; Z98.890 Other specified postprocedural states
CPT/HCPCS: 36415; 74177; 80053; 81001; 81025; 83690; 85007; 85027; 93005; 96361; 96374; 96375; 99284; A9270; J1170; J2405; J7030; Q9967

== ENCOUNTER 2022-08-24 14:53 | Emergency (ER) | payer MEDICAID ==
[2022-08-24] MEDS ORDERED: Sodium Chloride 0.9% 10 ML Syringe FLUSH PRN (15:53)
[2022-08-24] MEDS ORDERED: Ondansetron 4 MG/2 ML SDV IVPUSH ONE (15:53)
[2022-08-24] MEDS ORDERED: Sodium Chloride 0.9% 1,000 ML IV SCH (16:00)
[2022-08-24 16:48] LABS: CORONAVIRUS COVID-19 NAA NEGATIVE (NEGATIVE)
[2022-08-24] MEDS ORDERED: LORazepam 2 MG/ML SDV IVPUSH ONE (16:51)
[2022-08-24] MEDS ORDERED: Sodium Chloride 0.9% 10 ML Syringe FLUSH ONE (16:59)
[2022-08-24] MEDS ORDERED: Iopamidol 612 MG/ML 100 ML Bottle IVPUSH ONE (16:59)
== END 2022-08-24 18:10 | disposition home or self-care (01) ==
LOC: JD.ED 14:53
DX: K52.9 Noninfective gastroenteritis and colitis, unspecified (principal); I10 Essential (primary) hypertension; E66.9 Obesity, unspecified; Z68.27 Body mass index [BMI] 27.0-27.9, adult; Z88.8 Allergy status to other drugs, medicaments and biological substances; Z20.822 Contact with and (suspected) exposure to COVID-19
CPT/HCPCS: 0240U; 36415; 74177; 80053; 81001; 83690; 85025; 86140; 96361; 96374; 96375; 99284; J2060; J2405; J3490; J7030; Q9967

== ENCOUNTER 2022-08-25 09:55 | Emergency (ER) | payer MEDICAID ==
[2022-08-25] MEDS ORDERED: Ketorolac 60 MG/2 ML SDV IM ONE (10:38)
[2022-08-25] MEDS ORDERED: HYDROmorphone 0.5 MG/0.5 ML Syringe IM ONE (10:38)
== END 2022-08-25 13:22 | disposition home or self-care (01) ==
LOC: JD.ED 09:55
DX: N20.2 Calculus of kidney with calculus of ureter (principal); I10 Essential (primary) hypertension; E66.9 Obesity, unspecified; Z68.27 Body mass index [BMI] 27.0-27.9, adult; Z88.8 Allergy status to other drugs, medicaments and biological substances; Z90.49 Acquired absence of other specified parts of digestive tract
CPT/HCPCS: 36415; 80053; 85025; 96372; 99284; J1170; J1885

== ENCOUNTER 2022-10-12 09:38 | Emergency (ER) | payer MEDICAID ==
[2022-10-12] MEDS ORDERED: Sodium Chloride 0.9% 10 ML Syringe FLUSH PRN (10:57)
[2022-10-12] MEDS ORDERED: Ondansetron 4 MG/2 ML SDV IVPUSH ONE (10:57)
[2022-10-12] MEDS ORDERED: HYDROmorphone 0.5 MG/0.5 ML Syringe IVPUSH ONE (10:59)
[2022-10-12] MEDS ORDERED: Sodium Chloride 0.9% 1,000 ML IV SCH (11:00)
[2022-10-12 12:26] LABS: ESTIMATED GFR 119 mL/min (>60)
[2022-10-12] MEDS ORDERED: cefTRIAXone 2 GM in Sodium Chloride 0.9% 100 ML IV ONE (14:25)
== END 2022-10-12 16:23 | disposition home or self-care (01) ==
LOC: JD.ED 09:38
DX: N12 Tubulo-interstitial nephritis, not specified as acute or chronic (principal); N39.0 Urinary tract infection, site not specified; I10 Essential (primary) hypertension; E66.9 Obesity, unspecified; Z68.30 Body mass index [BMI] 30.0-30.9, adult; Z98.890 Other specified postprocedural states; Z88.8 Allergy status to other drugs, medicaments and biological substances; Z79.899 Other long term (current) drug therapy
CPT/HCPCS: 36415; 74176; 80053; 81001; 83690; 84703; 85025; 96361; 96365; 96375; 99284; J0696; J1170; J2405; J3490; J7030

== ENCOUNTER 2023-08-18 11:03 | Emergency (ER) | payer SELFPAY ==
[2023-08-18] MEDS: Albuterol/Ipratropium 3.0-0.5 MG/3 ML Neb Soln NEB ONE (11:50)
[2023-08-18 12:13] LABS: CORONAVIRUS COVID-19 NAA POSITIVE (NEGATIVE); INFLUENZA A NAA NEGATIVE (NEGATIVE); RESPIRATORY SYNCYTIAL VIR NAA NEGATIVE (NEGATIVE)
[2023-08-18] MEDS: predniSONE 20 MG Tab PO ONE (12:14)
== END 2023-08-18 14:37 | disposition home or self-care (01) ==
LOC: JD.ED 11:03
DX: U07.1 COVID-19 (principal); I10 Essential (primary) hypertension; J45.909 Unspecified asthma, uncomplicated
CPT/HCPCS: 0241U; 71045; 71045-26; 94640; 99285; J7620-GY